=== PATIENT | male | born 2000 | race Two or more races ===

== ENCOUNTER 2022-05-28 10:25 | Emergency (ER) | payer OTHER ==
[~2022-05-28] VITALS: Ht 180.3 cm; Wt 77.0 kg
[2022-05-28] MEDS ORDERED: IBU600T PO (11:33)
[2022-05-28 12:15] VITALS: BP 112/58
== END 2022-05-28 12:20 | disposition home or self-care (01) ==
LOC: ER 10:25 → EDBD 10:25 → ER 12:16
DX: S83.104A Unspecified dislocation of right knee, initial encounter (principal); J45.909 Unspecified asthma, uncomplicated; X58.XXXA Exposure to other specified factors, initial encounter; Y93.89 Activity, other specified; Y92.89 Other specified places as the place of occurrence of the external cause; Y99.8 Other external cause status
CPT/HCPCS: 73560